=== PATIENT | male | born 1985 ===

== ENCOUNTER 2020-05-29 15:22 | Emergency (ER) | payer SELFPAY ==
[2020-05-29 15:52] VITALS: BP 134/74
[2020-05-29] MEDS ORDERED: DIPHtheria,PERTUSSIS(ACELL),TETANUS VACCINE/PF 0.5 ML VIAL IM ONE (16:21)
--- NOTE | 2020-05-29 16:23 | Event Note ---
ED Screening Note Date of service: 05/29/20 Time: 16:19 ED Screening Note: 34-year-old -[place] male presents to the emergency room planing laceration to the right wrist and left finger since Monday. Patient states he had cut himself on glass. Patient attempted to seek medical care but did not stay for full evaluation at another hospital. Patient presents to concern for wounds. Patient be evaluated in the back. Last tetanus shot unsure. This initial assessment/diagnostic orders/clinical plan/treatment(s) is/are subject to change based on patients health status, clinical progression and re- assessment by fellow clinical providers in the ED. Further treatment and workup at subsequent clinical providers discretion. Patient/guardian urged not to elope from the ED as their condition may be serious if not clinically assessed and managed. Initial orders include:
--- NOTE | 2020-05-29 17:10 | XRay Report ---
RIGHT WRIST 4 VIEW(S) INDICATION / CLINICAL INFORMATION: possible glass COMPARISON: None FINDINGS: BONES / JOINT(S): No acute fracture or subluxation. No significant arthritis. SOFT TISSUES: There is evidence of soft tissue injury of the ulnar aspect of the wrist. No radiopaque foreign body identified. ADDITIONAL FINDINGS: None. IMPRESSION: Evidence of soft tissue injury at the ulnar aspect of the wrist. No radiopaque foreign body identifie d. Signer Name: Elmer Kline MD Signed: 05/29/2020 5:05 PM Workstation Name: [id number]
== END 2020-05-29 21:36 | disposition left against medical advice (07) ==
LOC: ED 15:22
DX: M25.531 Pain in right wrist (principal); Z53.21 Procedure and treatment not carried out due to patient leaving prior to being seen by health care provider

== ENCOUNTER 2020-05-30 05:45 | Emergency (ER) | payer SELFPAY ==
[2020-05-30 06:22] VITALS: BP 122/89
[2020-05-30] MEDS ORDERED: TETANUS,DIPHTHERIA TOXOID ADULT 0.5 ML INJ IM ONE (07:51)
[2020-05-30] MEDS ORDERED: DIPHtheria,PERTUSSIS(ACELL),TETANUS VACCINE/PF 0.5 ML VIAL IM ONE ×2 (08:01→08:35)
--- NOTE | 2020-05-30 08:08 | Emergency Department Report ---
ED Upper Extremity Inj HPI - General Chief Complaint: Extremity Injury, Upper Stated Complaint: RT HAND INJURY Time Seen by Provider: 05/30/20 07:48 Source: patient Mode of arrival: Ambulatory Limitations: No Limitations - History of Present Illness Initial Comments: This is a 34-year-old male states on Monday he accidentally cut his right lower arm with broken glass. At that time patient controlled bleeding at home and did not seek medical attention. Patient did come to the emergency department yesterday he had x-rays but states he had x-ray done he states the wait was too long so he left. Patient return to the emergency room early this morning states that his wounds are still bleeding. Status of his tetanus is unknown and he denies any past medical history - Related Data Previous Rx's Medication Instructions Recorded Last Taken Type cephALEXin [Keflex] 500 mg PO Q8HR #21 cap 05/30/20 Unknown Rx Allergies Allergy/AdvReac Type Severity Reaction Status Date / Time No Known Allergies Allergy Unverified 05/29/20 15:50 ED Review of Systems ROS: Stated complaint: RT HAND INJURY Other details as noted in HPI ED Past Medical Hx - Past Medical History Previous Medical History?: No - Surgical History Past Surgical History?: No - Social History Smoking Status: Current Every Day Smoker Substance Use Type: None - Medications Home Medications: Home Medications Medication Instructions Recorded Confirmed Last Taken Type cephALEXin [Keflex] 500 mg PO Q8HR #21 cap 05/30/20 Unknown Rx ED Physical Exam - General Limitations: No Limitations General appearance: alert, in no apparent distress - Head Head exam: Present: atraumatic - Eye Eye exam: Present: normal appearance - ENT ENT exam: Present: normal exam - Neck Neck exam: Present: normal inspection - Respiratory Respiratory exam: Present: normal lung sounds bilaterally - Cardiovascular Cardiovascular Exam: Present: regular rate, normal heart sounds - Extremities Exam Extremities exam: Present: other (right medial and lateral wrist with 2 lacerations proximately 2 cm also abrasions noted the wound is healing with granulation seen no active bleeding no surrounding erythema) ED Course Vital Signs 05/30/20 05/30/20 06:12 09:05 Temperature 98 F Pulse Rate 87 89 Respiratory 18 18 Rate Blood Pressure 122/89 [Left] O2 Sat by Pulse 100 100 Oximetry ED Medical Decision Making - Radiology Data Radiology results: report reviewed Right wrist x-ray FINDINGS: BONES / JOINT(S): No acute fracture or subluxation. No significant arthritis. SOFT TISSUES: There is evidence of soft tissue injury of the ulnar aspect of the wrist. No radiopaque foreign body identified. ADDITIONAL FINDINGS: None. IMPRESSION: Evidence of soft tissue injury at the ulnar aspect of the wrist. No radiopaque foreign body identified. - Medical Decision Making 34-year-old male who suffered laceration 3 days ago from broken glass seen he was in the emergency room yesterday but did not stay for complete complete meant of treatment. X-ray of the right wrist was done there is no foreign object no fracture noted. Wound cleansed and irrigated Steri-Strips applied wound care instructions given to patient will start on antibiotics because of delayed wound closure - Differential Diagnosis Laceration tendon injury Critical Care Time: No Critical care attestation.: If time is entered above; I have spent that time in minutes in the direct care of this critically ill patient, excluding procedure time. ED Disposition Clinical Impression: Laceration of right forearm without foreign body Qualifiers: Encounter type: subsequent encounter Qualified Code(s): S51.811D - Laceration without foreign body of right forearm, subsequent encounter Disposition: DC-01 TO HOME OR SELFCARE Is pt being admited?: No Does the pt Need Aspirin: No Condition: Stable Instructions: Laceration Care, Adult Additional Instructions: Keep wound clean and dry. Take antibiotic as prescribed. Follow-up if you see increased redness swelling pain or drainage from the wound. Okay to take [id number] Advil or Tylenol as directed by package insert for pain Prescriptions: cephALEXin [Keflex] 500 mg PO Q8HR #21 cap Referrals: PRIMARY CARE [Primary Care Provider] - 3-5 Days Time of Disposition: 08:09
== END 2020-05-30 09:05 | disposition home or self-care (01) ==
LOC: ED 05:45
DX: S51.811A Laceration without foreign body of right forearm, initial encounter (principal); F17.200 Nicotine dependence, unspecified, uncomplicated; Z79.899 Other long term (current) drug therapy; W25.XXXA Contact with sharp glass, initial encounter; Y93.89 Activity, other specified; Y92.89 Other specified places as the place of occurrence of the external cause; Y99.8 Other external cause status
CPT/HCPCS: 90714; 90715; 99282